=== PATIENT | male | born 1995 | race Two or more races ===

== ENCOUNTER 2021-01-02 09:25 | Outpatient (CLI) | payer OTHER ==
[~2021-01-02 09:25] MED LIST: IBUPROFEN800 MG PO
== END 2021-01-02 17:00 | disposition home or self-care (01) ==
LOC: PPH VACUNA 09:25
PROVIDERS: ATTEND Emergency Medicine Pediatric Emergency Medicine
DX: Z23 Encounter for immunization (principal)